=== PATIENT | male | born 1955 | race Caucasian/White ===

== ENCOUNTER → 2024-11-23 | Outpatient (CLI) | payer MEDICARE, OTHER ==
--- NOTE | 2024-11-23 22:22 | RADIOLOGY REPORT ---
Exam: CT CT PELVIS History: RIGHT LOWER QUADRANT PAIN Comparison Study: None Technique: Multidetector spiral CT of the pelvis was performed from iliac crests to pubic symphysis. 100 cc of intravenous contrast was administered during this examination. Portal venous imaging was obtained. Axial, coronal and sagittal multiplanar reformats were performed by the technologist on a separate workstation. Radiation Dose : CTDI volume is 27.65/26 was 60 mGy. Dose-length product is [id number] mGy*cm Findings: Visualized bowel: Small bowel and colon are normal in caliber and distribution. The appendix is not visualized; however, no secondary findings of acute appendicitis identified. There is scattered dive rticulosis of the sigmoid colon with no evidence of diverticulitis. Ascites: Absent Lymphadenopathy: No pelvic or mesenteric lymphadenopathy. Pelvis Wall and Mesentery: Unremarkable. Vasculature: The visualized abdominal aorta is normal in size and caliber. Abdominal and pelvic vess els demonstrate normal enhancement. Atherosclerotic changes with calcified plaque involving the dista l abdominal aorta and iliac vessels. Pelvic Organs: Unremarkable the prostate and seminal vesicle appears normal. Musculoskeletal: No aggressive focal bony lesions, acute fractures or dislocation. Disc disease is va cuum phenomena at L5-S1. The sacrum and coccyx appear normal Bladder: Unremarkable IMPRESSION: 1. No acute pelvic finding. 2. Diverticulosis mostly of the sigmoid colon with no evidence of diverticulitis. 3. Moderate to severe Disc disease with vacuum phenomena seen at L5-S1
== END | disposition home or self-care (01) ==
LOC: RAD 13:43
PROVIDERS: ATTEND Family Medicine
DX: M51.379 Other intervertebral disc degeneration, lumbosacral region without mention of lumbar back pain or lower extremity pain (principal); R10.31 Right lower quadrant pain; I70.0 Atherosclerosis of aorta; I70.8 Atherosclerosis of other arteries; K57.30 Diverticulosis of large intestine without perforation or abscess without bleeding
CPT/HCPCS: 72192